=== PATIENT | female | born 1985 | race Caucasian/White ===

== ENCOUNTER 2020-01-11 09:13 | Outpatient (CLI) | payer BC | END 2020-01-11 23:59 | disposition home or self-care (01) | LOC: CFH 09:13 | PROVIDERS: ATTEND Specialist | DX: D25.9 Leiomyoma of uterus, unspecified (principal); N92.5 Other specified irregular menstruation | CPT/HCPCS: 36415; 84702 ==

== ENCOUNTER 2020-01-28 09:25 | Outpatient (CLI) | payer BC ==
[2020-01-28 12:58] LABS: BASOPHILS % (AUTO) 1 % (0-1); EOSINOPHILS # (AUTO) 0.12 x10^3/uL (0-0.4); EOSINOPHILS % (AUTO) 1 % (1-7); LYMPHOCYTES # (AUTO) 2.04 x10^3/uL (1-3.4); LYMPHOCYTES % (AUTO) 18 % (22-44); MD NO; MEAN CORPUSCULAR HEMOGLOBIN 32.2 pg (27.0-34.8); MEAN CORPUSCULAR VOLUME 94.4 fL (80-100); MEAN PLATELET VOLUME 7.8 fL (7.4-10.4); MONOCYTES # (AUTO) 0.69 x10^3/uL (0.2-0.8); MONOCYTES % (AUTO) 6 % (2-9); NEUTROPHILS # (AUTO) 8.69 x10^3/uL (1.8-6.8); NEUTROPHILS % (AUTO) 75 % (42-75); PLATELET COUNT 272 x10^3/uL (130-400); RED CELL DISTRIBUTION WIDTH 12.6 % (9.6-15.2)
[2020-01-28 13:07] LABS: MICROSCOPIC NOT IND
[2020-01-28 13:09] LABS: CULTURE INDICATED? NO
== END 2020-01-28 23:59 | disposition home or self-care (01) ==
LOC: CFH 09:25
PROVIDERS: ATTEND Obstetrics & Gynecology
DX: Z34.81 Encounter for supervision of other normal pregnancy, first trimester (principal); Z3A.00 Weeks of gestation of pregnancy not specified
CPT/HCPCS: 36415; 81003; 85025; 86592; 86762; 86850; 86900; 87340; 87491; 87591; 87806; G0475

== ENCOUNTER → 2020-03-17 | Outpatient (CLI) | payer BC | END | disposition home or self-care (01) | LOC: CFH 11:51 | PROVIDERS: ATTEND Obstetrics & Gynecology | DX: Z34.81 Encounter for supervision of other normal pregnancy, first trimester (principal); Z3A.00 Weeks of gestation of pregnancy not specified | CPT/HCPCS: 36415; 82105 ==

== ENCOUNTER → 2020-03-30 | Outpatient (CLI) | payer BC | END | disposition home or self-care (01) | LOC: CFH 09:32 | PROVIDERS: ATTEND Obstetrics & Gynecology Maternal & Fetal Medicine | DX: O09.522 Supervision of elderly multigravida, second trimester (principal); Z3A.19 19 weeks gestation of pregnancy | CPT/HCPCS: 36415; 82105 ==

== ENCOUNTER 2020-05-25 14:22 | Outpatient (CLI) | payer BC ==
[~2020-05-25] VITALS: Ht 167.6 cm; Wt 74.5 kg
[2020-05-25 14:35] VITALS: BP 116/74
[2020-05-25 15:44] LABS: MICROSCOPIC NOT IND
[2020-05-25] MEDS ORDERED: KETOROLAC 30 MG/1 ML ONE (16:10)
[2020-05-25] MEDS ORDERED: KETOROLAC 30 MG/1 ML IM SCH (16:30)
== END 2020-05-25 16:53 | disposition home or self-care (01) ==
LOC: LDOP 14:22
PROVIDERS: ATTEND Obstetrics & Gynecology
DX: O09.892 Supervision of other high risk pregnancies, second trimester (principal); N92.0 Excessive and frequent menstruation with regular cycle; Z3A.26 26 weeks gestation of pregnancy
CPT/HCPCS: 81003; 87086; 96372; 99211; J1885; G0463

== ENCOUNTER → 2020-05-25 | Outpatient (CLI) | payer BC ==
[2020-05-25 12:58] LABS: BASOPHILS # (AUTO) 0.02 x10^3/uL (0-0.1); BASOPHILS % (AUTO) 0 % (0-1); EOSINOPHILS # (AUTO) 0.06 x10^3/uL (0-0.4); EOSINOPHILS % (AUTO) 1 % (1-7); LYMPHOCYTES # (AUTO) 1.33 x10^3/uL (1-3.4); LYMPHOCYTES % (AUTO) 11 % (22-44); MD NO; MEAN CORPUSCULAR HEMOGLOBIN 30.6 pg (27.0-34.8); MEAN CORPUSCULAR HGB CONC 33.4 g/dL (32.4-35.8); MEAN CORPUSCULAR VOLUME 91.5 fL (80-100); MEAN PLATELET VOLUME 8.2 fL (7.4-10.4); MONOCYTES # (AUTO) 0.64 x10^3/uL (0.2-0.8); MONOCYTES % (AUTO) 5 % (2-9); NEUTROPHILS # (AUTO) 9.68 x10^3/uL (1.8-6.8); NEUTROPHILS % (AUTO) 83 % (42-75); PLATELET COUNT 231 x10^3/uL (130-400); RED CELL DISTRIBUTION WIDTH 12.7 % (9.6-15.2)
== END | disposition home or self-care (01) ==
LOC: CFH 08:00
PROVIDERS: ATTEND Obstetrics & Gynecology
DX: O09.892 Supervision of other high risk pregnancies, second trimester (principal); N92.0 Excessive and frequent menstruation with regular cycle; Z3A.00 Weeks of gestation of pregnancy not specified
CPT/HCPCS: 36415; 82950; 85025; 86592; 86850; 86900

== ENCOUNTER → 2020-07-07 | Outpatient (CLI) | payer BC ==
[2020-07-07 13:18] LABS: ALBUMIN 2.3 g/dL (3.4-5.0); ANION GAP 8 mmol/L (5-15); CALCIUM 8.9 mg/dL (8.5-10.1); CHLORIDE 109 mmol/L (98-107)
[2020-07-07 13:22] LABS: ALANINE AMINOTRANSFERASE 20 U/L (12-78); ALKALINE PHOSPHATASE 166 U/L (45-117); BILIRUBIN,TOTAL 0.4 mg/dL (0.2-1.0); CREATININE 0.65 mg/dL (0.55-1.02); TOTAL PROTEIN 6.4 g/dL (6.4-8.2)
== END | disposition home or self-care (01) ==
LOC: CFH 09:04
PROVIDERS: ATTEND Obstetrics & Gynecology Maternal & Fetal Medicine
DX: O24.410 Gestational diabetes mellitus in pregnancy, diet controlled (principal); O09.523 Supervision of elderly multigravida, third trimester; O34.13 Maternal care for benign tumor of corpus uteri, third trimester; Z3A.34 34 weeks gestation of pregnancy
CPT/HCPCS: 36415; 80053; 82239

== ENCOUNTER → 2020-08-09 | Outpatient (CLI) | payer BC, OTHER ==
[~2020-08-09] MED LIST: PREN1COM10 PO
== END | disposition home or self-care (01) ==
LOC: STAR 10:29
PROVIDERS: ATTEND Anesthesiology
DX: Z01.812 Encounter for preprocedural laboratory examination (principal); Z20.828 Contact with and (suspected) exposure to other viral communicable diseases
CPT/HCPCS: 36415; 87635

== ENCOUNTER 2020-08-13 03:44 | Inpatient (IN) | payer BC ==
[2020-08-13] VITALS (11 sets, daily range): BP systolic 97–150; BP diastolic 58–77
[~2020-08-13] VITALS: Ht 166.4 cm; Wt 77.3 kg
[2020-08-13] MEDS ORDERED: PREN1COM10 PO (04:06)
[2020-08-13] MEDS ORDERED: LACTATED RINGERS 1,000 ML IV SCH (04:30)
[2020-08-13] MEDS ORDERED: METOCLOPRAMIDE 5 MG/ML, 2ML IV ONE (04:30)
[2020-08-13] MEDS ORDERED: SODIUM CITRATE/CITRIC ACID 30 ML UDC PO ONE (04:30)
[2020-08-13] MEDS ORDERED: PLEASE ENTER ALLERGIES MC SCH (04:30)
[2020-08-13] MEDS ORDERED: LACTATED RINGERS 1,000 ML IVBOLUS ONE (04:30)
[2020-08-13 04:47] LABS: BASOPHILS % (AUTO) 1 % (0-1); EOSINOPHILS % (AUTO) 1 % (1-7); LYMPHOCYTES % (AUTO) 12 % (22-44); MEAN CORPUSCULAR HEMOGLOBIN 27.3 pg (27.0-34.8); MEAN CORPUSCULAR HGB CONC 32.8 g/dL (32.4-35.8); MEAN PLATELET VOLUME 8.1 fL (7.4-10.4); MONOCYTES % (AUTO) 6 % (2-9); NEUTROPHILS % (AUTO) 80 % (42-75); PLATELET COUNT 367 x10^3/uL (130-400); RED BLOOD COUNT 4.64 x10^6/uL (3.82-5.3); RED CELL DISTRIBUTION WIDTH 14.3 % (9.6-15.2)
[2020-08-13] MEDS ORDERED: morphine SULFATE/PF 0.5 MG/ML, 10ML ONE (05:05)
[2020-08-13] MEDS ORDERED: EPINEPHRINE 1 MG/ML, 1ML ONE (05:17)
[2020-08-13 05:52] LABS: MD SCAN
[2020-08-13] MEDS ORDERED: WATER-INJECTION,STERILE 10 ML IV ONE (05:56)
[2020-08-13] MEDS ORDERED: PHENYLEPHRINE 10 MG/ML ONE (05:56)
[2020-08-13] MEDS ORDERED: CEFAZOLIN 1,000 MG ONE (05:56)
[2020-08-13] MEDS ORDERED: EPHEDRINE 50 MG/ML, 1ML ONE (05:56)
[2020-08-13] MEDS ORDERED: OXYTOCIN 10 UNITS/ML, 1ML ONE ×2 (05:56→07:14)
[2020-08-13] MEDS ORDERED: ONDANSETRON 2MG/ML, 2ML ONE (05:56)
[2020-08-13] MEDS ORDERED: KETOROLAC 30 MG/1 ML ONE (07:55)
[2020-08-13] MEDS ORDERED: OXYcodone 5 MG/5 ML ORAL.SOL UDC ONE (07:55)
[2020-08-13] MEDS ORDERED: ACETAMINOPHEN 325 MG TABLET PO PRN ×2 (08:00)
[2020-08-13] MEDS ORDERED: OXYcodone IR 5MG TABLET PO PRN (08:00)
[2020-08-13] MEDS ORDERED: METOCLOPRAMIDE 5 MG/ML, 2ML IV PRN (08:00)
[2020-08-13] MEDS ORDERED: RHOGAM FROM BLOOD BANK 1 NOTE EA IM/IV ONE (08:00)
[2020-08-13] MEDS ORDERED: morphine SULFATE 10 MG/ML, 1ML IVPush PRN ×2 (08:00)
[2020-08-13] MEDS ORDERED: MISOPROSTOL 200 MCG TABLET PR PRN (08:00)
[2020-08-13] MEDS ORDERED: CALCIUM CARBONATE 500 MG TAB.CHEW PO PRN (08:00)
[2020-08-13] MEDS ORDERED: ONDANSETRON 2MG/ML, 2ML IV PRN (08:00)
[2020-08-13] MEDS ORDERED: MEASLES,MUMPS&RUBELLA VACC/PF 0.5 ML SQ-VACC PRN (08:00)
[2020-08-13] MEDS: OXYTOCIN 30U/ 0.9% NaCL 500ML 500 ML IV SCH ×2 (08:06→18:00)
[2020-08-13] MEDS: KETOROLAC 30 MG/1 ML IV PRN ×3 (08:07→20:40)
[2020-08-13] MEDS ORDERED: OXYcodone 5 MG/5 ML ORAL.SOL UDC PO PRN (08:30)
[2020-08-13] MEDS: PRENATAL VIT/IRON/FA 1 EACH TABLET PO SCH (09:00)
[2020-08-13] MEDS: LACTATED RINGERS 1,000 ML IV SCH ×4 (09:25→18:00)
[2020-08-13] MEDS: OXYcodone IR 5MG TABLET PO PRN ×2 (13:00→21:40)
[2020-08-13 14:18] LABS: BASOPHILS % (AUTO) 0 % (0-1); EOSINOPHILS % (AUTO) 0 % (1-7); LYMPHOCYTES % (AUTO) 14 % (22-44); MEAN CORPUSCULAR HEMOGLOBIN 28.5 pg (27.0-34.8); MEAN CORPUSCULAR HGB CONC 33.6 g/dL (32.4-35.8); MEAN PLATELET VOLUME 8.5 fL (7.4-10.4); MONOCYTES % (AUTO) 6 % (2-9); NEUTROPHILS % (AUTO) 80 % (42-75); PLATELET COUNT 237 x10^3/uL (130-400); RED BLOOD COUNT 3.22 x10^6/uL (3.82-5.3); RED CELL DISTRIBUTION WIDTH 13.9 % (9.6-15.2)
[2020-08-13 14:27] LABS: MD NO
[2020-08-13 14:29] LABS: INTERNATIONAL NORMALIZED RATIO 0.95 (0.93-1.1); PROTHROMBIN TIME 10.1 Seconds (9.6-11.5)
[2020-08-13] MEDS ORDERED: LACTATED RINGERS 500 ML IVBOLUS ONE (16:30)
[2020-08-13] MEDS: SIMETHICONE 80 MG CHEW TAB PO PRN (19:28)
[2020-08-14] MEDS: OXYcodone IR 5MG TABLET PO PRN ×4 (03:16→21:29)
[2020-08-14] MEDS: KETOROLAC 30 MG/1 ML IV PRN (03:16)
[2020-08-14 03:30] LABS: BASOPHILS % (AUTO) 1 % (0-1); EOSINOPHILS % (AUTO) 0 % (1-7); LYMPHOCYTES % (AUTO) 9 % (22-44); MEAN CORPUSCULAR HEMOGLOBIN 27.5 pg (27.0-34.8); MEAN CORPUSCULAR HGB CONC 32.4 g/dL (32.4-35.8); MEAN PLATELET VOLUME 8.3 fL (7.4-10.4); MONOCYTES % (AUTO) 9 % (2-9); NEUTROPHILS % (AUTO) 81 % (42-75); PLATELET COUNT 275 x10^3/uL (130-400); RED BLOOD COUNT 3.46 x10^6/uL (3.82-5.3); RED CELL DISTRIBUTION WIDTH 14.1 % (9.6-15.2)
[2020-08-14 04:00] VITALS: BP 116/79
[2020-08-14] MEDS: OXYTOCIN 30U/ 0.9% NaCL 500ML 500 ML IV SCH ×2 (04:00→18:59)
[2020-08-14] MEDS: LACTATED RINGERS 1,000 ML IV SCH ×5 (04:00→18:59)
[2020-08-14 04:01] LABS: MD SCAN
[2020-08-14 07:50] VITALS: BP 109/58
[2020-08-14] MEDS: IBUPROFEN 600 MG TABLET PO PRN ×3 (09:28→21:29)
[2020-08-14] MEDS: DOCUSATE 100 MG CAPSULE PO PRN ×2 (09:28→21:29)
[2020-08-14] MEDS: SIMETHICONE 80 MG CHEW TAB PO PRN ×3 (09:29→21:29)
[2020-08-14 13:00] VITALS: BP 107/60
[2020-08-14] MEDS: FERROUS SULFATE 325 MG TABLET PO SCH (17:56)
[2020-08-14] MEDS: PRENATAL VIT/IRON/FA 1 EACH TABLET PO SCH (18:59)
[2020-08-14 19:55] VITALS: BP 115/72
[2020-08-15] MEDS: LACTATED RINGERS 1,000 ML IV SCH ×2
[2020-08-15] MEDS: OXYTOCIN 30U/ 0.9% NaCL 500ML 500 ML IV SCH
[2020-08-15] MEDS: IBUPROFEN 600 MG TABLET PO PRN ×3 (07:57→21:40)
[2020-08-15] MEDS: OXYcodone IR 5MG TABLET PO PRN ×3 (07:57→21:41)
[2020-08-15] MEDS: DOCUSATE 100 MG CAPSULE PO PRN ×2 (07:57→21:40)
[2020-08-15] MEDS: FERROUS SULFATE 325 MG TABLET PO SCH ×2 (07:57→17:08)
[2020-08-15] MEDS: SIMETHICONE 80 MG CHEW TAB PO PRN ×2 (07:57→15:22)
[2020-08-15 08:02] VITALS: BP 117/79
[2020-08-15] MEDS: PRENATAL VIT/IRON/FA 1 EACH TABLET PO SCH (08:56)
[2020-08-15 20:00] VITALS: BP 111/77
[2020-08-16] MEDS: OXYcodone IR 5MG TABLET PO PRN (03:17)
[2020-08-16 08:10] VITALS: BP 138/74
[2020-08-16] MEDS: DOCUSATE 100 MG CAPSULE PO PRN (08:18)
[2020-08-16] MEDS: FERROUS SULFATE 325 MG TABLET PO SCH ×2 (08:18→17:03)
[2020-08-16] MEDS: PRENATAL VIT/IRON/FA 1 EACH TABLET PO SCH (08:23)
[2020-08-16] MEDS: IBUPROFEN 600 MG TABLET PO PRN (14:01)
[2020-08-16] MEDS ORDERED: IBUP-1222 PO (16:45)
[2020-08-16] MEDS ORDERED: OXYC-302 PO (16:46)
== END 2020-08-16 18:45 | disposition home or self-care (01) | DRG 788 ==
LOC: LDOP 03:44 → LDIP 04:24 → 2NE 09:33 → 2NW 19:04
PROVIDERS: ADMIT Obstetrics & Gynecology; ATTEND Obstetrics & Gynecology
PROC: 10D00Z1 Extraction of Products of Conception, Low, Open Approach (ICD-10-PCS; principal; 2020-08-13)
PROC: 0UB90ZZ Excision of Uterus, Open Approach (ICD-10-PCS; 2020-08-13)
PROC: 30233N1 Transfusion of Nonautologous Red Blood Cells into Peripheral Vein, Percutaneous Approach (ICD-10-PCS; 2020-08-13)
PROC: 30233K1 Transfusion of Nonautologous Frozen Plasma into Peripheral Vein, Percutaneous Approach (ICD-10-PCS; 2020-08-13)
PROC: 3E0234Z Introduction of Serum, Toxoid and Vaccine into Muscle, Percutaneous Approach (ICD-10-PCS; 2020-08-14)
DX: O34.13 Maternal care for benign tumor of corpus uteri, third trimester (principal); D25.9 Leiomyoma of uterus, unspecified; O24.420 Gestational diabetes mellitus in childbirth, diet controlled; Z3A.38 38 weeks gestation of pregnancy; Z37.0 Single live birth; Z23 Encounter for immunization
CPT/HCPCS: 36415; 74018; 82962; 85025; 85384; 85460; 85461; 85610; 85730; 86592; 86850; 86900; 86923; 88305; G0378; J0171; J0690; J1885; J2274; J2405; J2790; J2370; J2590; J2765; J7120; P9016; P9017